=== PATIENT | female | born 1990 | race Caucasian/White ===

== ENCOUNTER 2023-11-26 21:00 | Observation (INO) | payer OTHER ==
[~2023-11-26] VITALS: Ht 154.9 cm; Wt 79.4 kg
[2023-11-26 21:20] VITALS: BP 116/67; RESP 18; TEMP 98.3
== END 2023-11-26 22:45 | disposition home or self-care (01) ==
LOC: MLD 21:00
PROVIDERS: ADMIT Obstetrics & Gynecology; ATTEND Obstetrics & Gynecology
DX: O26.892 Other specified pregnancy related conditions, second trimester (principal); R10.9 Unspecified abdominal pain; Z3A.27 27 weeks gestation of pregnancy
CPT/HCPCS: 81000; G0378